=== PATIENT | male | born 1945 | race Caucasian/White ===

== ENCOUNTER 2021-12-04 10:45 | Outpatient (CLI) | payer MEDICARE, OTHER | END 2021-12-04 10:46 | disposition home or self-care (01) | LOC: CSHLAB 10:45 | PROVIDERS: ATTEND Specialist | DX: Z20.822 Contact with and (suspected) exposure to COVID-19 (principal) | CPT/HCPCS: 87811 ==

== ENCOUNTER 2021-12-08 08:56 | Outpatient (CLI) | payer MEDICARE, OTHER | END 2021-12-08 08:57 | disposition home or self-care (01) | LOC: CSHRAD 08:56 | PROVIDERS: ATTEND Specialist | DX: R13.10 Dysphagia, unspecified (principal); K22.4 Dyskinesia of esophagus | CPT/HCPCS: 74220 ==